=== PATIENT | male | born 1985 | race Caucasian/White ===

== ENCOUNTER 2016-11-11 20:20 | Emergency (ER) | payer OTHER | END 2016-11-11 20:51 | disposition home or self-care (01) | LOC: ER 20:20 | DX: L02.01 Cutaneous abscess of face (principal); F32.9 Major depressive disorder, single episode, unspecified; F41.9 Anxiety disorder, unspecified; F17.200 Nicotine dependence, unspecified, uncomplicated; Z86.14 Personal history of Methicillin resistant Staphylococcus aureus infection; Z88.1 Allergy status to other antibiotic agents ==